=== PATIENT | female | born 2000 | race African-American/Black ===

== ENCOUNTER 2020-04-16 18:51 | Emergency (ER) | payer BC ==
[~2020-04-16] VITALS: Ht 157.5 cm; Wt 61.0 kg
[2020-04-16 22:10] VITALS: BP 128/81
== END 2020-04-16 22:41 | disposition home or self-care (01) ==
LOC: ER 18:51
DX: R07.89 Other chest pain (principal)
CPT/HCPCS: 93005; 99281; 99283